=== PATIENT | female | born 1970 | race Two or more races ===

== ENCOUNTER → 2018-09-09 | Emergency (ER) | payer OTHER ==
[~2018-09-09] VITALS: Ht 157.5 cm; Wt 89.4 kg
[~2018-09-09] MED LIST: NORFLEC; PANADOL EXTRA500 MG; PNEU16DI2; RELAFEN
== END | disposition home or self-care (01) ==
LOC: ER 16:25
DX: S92.912A Unspecified fracture of left toe(s), initial encounter for closed fracture (principal); W18.39XA Other fall on same level, initial encounter; Y93.89 Activity, other specified; Y92.098 Other place in other non-institutional residence as the place of occurrence of the external cause; Y99.8 Other external cause status